=== PATIENT | female | born 2000 | race Caucasian/White ===

== ENCOUNTER 2023-07-08 21:47 | Outpatient (REF) | payer OTHER, BC, SELFPAY ==
[2023-07-13 12:13] LABS: Age Gdln ACOG Testing Note (.); IGP, rfx Aptima HPV ASCU Note (.)
== END 2023-07-08 21:48 | disposition home or self-care (01) ==
LOC: LAB 21:47
PROVIDERS: Visit Provider Physician Assistant
DX: Z01.419 Encounter for gynecological examination (general) (routine) without abnormal findings (principal)
CPT/HCPCS: G0145

== ENCOUNTER 2023-09-08 09:56 | Outpatient (OUT) | payer OTHER, BC, SELFPAY ==
--- NOTE | 2023-09-08 09:58 | US_ITS ---
The [address] [address] Patient Name: MIKAYLA MARKS MRN: [id number] date: 2000 Sex: F Assigned Patient Location: [facility] Current Patient Location: [facility] Accession/Order Number: [id number] Exam Date: 09/08/2023 09:59 Report Date: 09/08/2023 13:07 At the request of: IMELDA PÉREZ Procedure: US pelvis EXAMINATION: US pelvis HISTORY: BREAKTHROUGH BLEEDING COMPARISON: No relevant comparison available. FINDINGS: Transabdominal images The uterus is normal in size, contour and echotexture, anteverted, anteflexed. The uterus measures 7.0 x 2.8 x 4.9 cm. No focal myometrial mass The endometrium measures 3 mm, normal. The right ovary is normal measuring 2.5 x 1.4 x 2.5 cm. Normal color and Doppler flow. The left ovary is normal measuring 2.7 x 1.8 x 2.1 cm. Normal color and Doppler flow No free fluid US/US pelvis IMPRESSION: No abnormality observed Electronically authenticated by: ROGELIO DUMAS Date: 09/08/2023 13:07
--- OUTSIDE RECORDS SUMMARY | 2023-09-08 10:12 | XMS_ITS | CCD ---
Author Organization [facility] Care Team Providers Care Dredge Runner Name Role Phone LE SHARMA Admitting Unavailable LE SHARMA Attending Unavailable LE SHARMA Consulting Unavailable MISC, DOCTOR Admitting Unavailable MISC, DOCTOR Attending Unavailable REQUEST, NONE LISTED Primary Care Unavailable MISC, DOCTOR Consulting Unavailable FRANKO TRINIDAD Consulting Unavailable REQUEST, NONE LISTED Consulting Unavailable Problems Problem Classification Problem Date Documented Da te Episodic/Chronic Abdominal pain (4 sources) Unspecified abdominal pain; Translations: [UNSPECIFIED ABDOMINAL PAIN] Onset: 06-12-2019 Episodic Contraceptive and procreative management (4 sources) Encounter for surveillance of implantable subdermal contraceptive; Translations: [ENC SURV IMPLANT SUBDERMAL CNTRACPT] Onset: 05-26-2019 Results Test Name Value Interpretation Reference Range Facil ity US Nhan 06-12-2019 US ABD Patient: MIKAYLA MARKS. Exam Date: 06/12/2019 : 2000 Gender:F Ordering : DR. NEIDA RENTERIA Admission #: [id number] Family : Order #: [id number] CLICK HERE TO VIEW EXAM RADIOLOGY REPORT PROCEDURE: ULTRASOUND ABDOMEN COMPARISON: None. INDICATIONS: Chronic intermittent epigastric abdominal pain for 9 years TECHNIQUE: Complete ultrasound examination of the abdomen was performed. FINDINGS: LIVER: Normal size and echotexture. Color Doppler demonstrates patent hepatic veins. BILIARY: No abnormal dilation or visible calculus. Maximum common bile duct diameter: 3 mm. GALLBLADDER: No visible gallstones, wall thickening, or pericholecystic fluid. Negative sonographic Samuel's sign. PORTAL VEIN: Duplex Doppler demonstrates normal hepatopetal flow pattern averaging 35 cm/s. AORTA: Unremarkable. IVC: Unremarkable. PANCREAS: No visible mass, abnormal atrophy, or duct dilation. RIGHT KIDNEY: No visible mass, calculus or obstruction. Length: 10.4 cm. LEFT KIDNEY: No visible mass, calculus or obstruction. Length: 10.2 cm. SPLEEN: Normal size and echotexture. Maximum longitudinal diameter.10.4 cm. OTHER: Negative. CONCLUSION: 1. No acute or suspicious findings to account for the patient's symptoms. Dictated by: Franko Trinidad M.D. on 06/13/2019 at 08:26 Approved by: Franko Trinidad M.D. on 06/13/2019 at 08:31 Normal [facility] CHLAMYDIA/GONOCOCCUS CODY (SW AB/URINE/PAPon 05-29-2019 Chlamydia trachomatis, CODY Negative Normal Negative [facility] Comment on above: Performed By: #### C T/NGNA #### [facility] [address], [place] [address] Era Lei Neisseria gonorrhoeae, CODY Negative Normal Negative [facility] Comment on above: Performed By: #### C T/NGNA #### [facility] [address], [place] [address] Era Lei Encounters Encounter Date Encounter Type Care Provider Facility Start: 06-12-2019 End: 06-13-2019 Patient encounter procedure DOCTOR MIN Facility:[facility] Start: 05-26-2019 End: 05-26-2019 Patient encounter procedure LE SHARMA Facility:[facility] Payers Date Payer Category Payer Unknown [id number] 2000 Unknown [id number] 1957 Private Health Insurance [id number] 1957 Private Health Insurance [id number] Summary Purpose Family History No Family History Records Found Advance Directives No Advanced Directives Records Found Additional Source Comments INFORMATION SOURCE (unrecogn ized section and content) DATE CREATED AUTHOR 06/16/2019 [facility] FOR RECORDS PERTAINING TO PATIENTS WHO ARE OR HAVE BEEN ENROLLED IN A CHEMICAL DEPENDENCY/SUBSTANCEABUSE PROGRAM, SOME INFORMATION MAY BE OMITTED. This clinical summary was aggregated from multiple sources. Caution should be exercised in using it in the provision of clinical care. This summary normalizes information from multiple sources, and as a consequence, information in this document may materially change the coding, format and clinical context of patient data. In addition, data may be omitted in some cases. CLINICAL DECISIONS SHOULD BE BASED ON THE PRIMARY CLINICAL RECORDS. [facility] [employer] [facility]. provides no warranty or guarantee of the accuracy or completeness of information in this document.
== END 2023-09-08 09:57 | disposition home or self-care (01) ==
LOC: NOMS 09:57
PROVIDERS: Visit Provider Physician Assistant
DX: N92.1 Excessive and frequent menstruation with irregular cycle (principal); Z97.5 Presence of (intrauterine) contraceptive device
CPT/HCPCS: 76856

== ENCOUNTER 2024-06-16 07:31 | Outpatient (OUT) | payer OTHER, BC, SELFPAY ==
--- OUTSIDE RECORDS SUMMARY | 2024-06-16 07:33 | XMS_ITS | CCD ---
Author Organization [facility] Care Team Providers Care Mold Maker Plaster Name Role Phone LE SHARMA Admitting Unavailable LE SHARMA Attending Unavailable LE SHARMA Consulting Unavailable MISC, DOCTOR Admitting Unavailable MISC, DOCTOR Attending Unavailable REQUEST, NONE LISTED Primary Care Unavailable MECHELLE, DOCTOR Consulting Unavailable FRANKO TRINIDAD Consulting Unavailable REQUEST, NONE LISTED Consulting Unavailable MARYSE NINA Attending Unavailable Unavailable Primary Care Provider UnavailSophy Hendricks Attending Unavailable Sophy Fall Admitting Unavailable SHANA PÉREZ Attending Unavailable LEANDRA LAMAR Attending Unavailable LEANDRA LAMAR Attending Unavailable SHANA PÉREZ Attending Unavailable Allergies Allergy Classification Reported Allergen(s) Allergy Type Date of Onset Reaction(s) Facility (1 source) ALLERGIES NOT ON FILE; Translations: [ALLERGIES NOT ON FILE] Propensity to adverse reactions (disorder) [facility] Repository Medications Current Medications Medication Drug Class(es) Dates Sig (Normalized) Sig (Original) 8 hr acetaminophen 650 mg extended release oral tablet (5 sources) acetaminophen (Tylenol 8 Hour) 650 MG ER tablet Tylenol Active aluminum chloride 200 mg/ml topical solution (2 sources) Start: 05-10-2023 End: 05-09-2024 aluminum chloride (Drysol) 20 % external solution Apply topically at bedtime 0 05/10/2023 05/09/2024 Active desogestrel 0.15 mg / ethinyl estradiol 0.03 mg oral tablet (3 sources) Progestin, Estrogen Start: 08-25-2023 End: 08-24-2024 desogestrel-ethinyl estradiol (Apri) 0.15-30 MG-MCG tablet Indications: Breakthrough bleeding on Nexplanon Take 1 tablet by mouth Daily 28 tablet 12 08/25/2023 08/24/2024 Active Completed/Discontinued Medications Medication Drug Class(es) Dates Sig (Normalized) Sig (Original) adapalene 0.001 mg/mg / benzoyl peroxide 0.025 mg/mg topical gel (5 sources) Retinoid End: 06-07-2024 Adapalene-Benzoyl Peroxide 0.1-2.5 % gel Epiduo 0.1 %-2.5 % topical gel with pump APPLY A THIN LAYER TO THE AFFECTED ACNE AREA(S) OF THE FACE AND/OR UPPER TRUNK AFTER WASHING BY TOPICAL ROUTE ONCE DAILY 06/07/2024 Discontinued citalopram 10 mg oral tablet (9 sources) Serotonin Reuptake Inhibitor Start: 05-15-2024 End: 06-07-2024 take 1 tablet by mouth in the morning citalopram (CeleXA) 10 MG tablet Indications: Anxiety, generalized (CMS/HCC) TAKE 1 TABLET BY MOUTH IN THE MORNING 30 tablet 2 05/15/2024 06/07/2024 Discontinued Start: 02-22-2024 End: 02-21-2025 take 1 tablet by mouth once daily citalopram (CeleXA) 20 MG tablet Indications: Anxiety, generalized (CMS/HCC) Take 1 tablet (20 mg) by mouth Daily 30 tablet 11 02/22/2024 02/21/2025 Active Start: 02-04-2023 take 1 tablet by janey th in the morning citalopram (CeleXA) 10 MG tablet Indications: Anxiety, generalized (CMS/HCC) Take 1 tablet (10 mg) by mouth in the morning. 30 tablet 11 02/04/2023 Active desoximetasone 2.5 mg/ml topical cream (5 sources) Corticosteroid End: 06-07-2024 desoximetasone (Topicort) 0.25 % cream APPLY A THIN LAYER TO THE ITCHY ECZEMA RASH ON ARMS AND LEGS TWICE DAILY UNTIL IMPROVED 06/07/2024 Discontinued etonogestrel 68 mg drug implant (5 sources) Progestin Start: 12-22-2021 End: 06-07-2024 etonogestrel-eluting (Nexplanon) 68 mg contraceptive implant 1 each by Implant route 1 (one) time 12/22/2021 06/07/2024 Discontinued ondansetron 4 mg disintegrating oral tablet (3 sources) Serotonin-3 Receptor Antagonist Start: 08-05-2023 End: 06-07-2024 ondansetron ODT (Zofran-ODT) 4 MG disintegrating tablet DISSOLVE 1 TO 2 TABLETS UNDER THE TONGUE EVERY 4 TO 6 HOURS NEEDED FOR NAUSEA/VOMITING 08/05/2023 06/07/2024 Discontinued Problems Problem Classification Problem Date Documented Da te Episodic/Chronic Abdominal pain (4 sources) Unspecified abdominal pain; Translations: [UNSPECIFIED ABDOMINAL PAIN] Onset: 06-12-2019 Episodic Allergic reactions (2 sources) Intrinsic (allergic) eczema; Translations: [Intrinsic (allergic) eczema] Onset: 02-08-2023 Chronic Contraceptive and procreative management (4 sources) Encounter for surveillance of implantable subdermal contraceptive; Translations: [ENC SURV IMPLANT SUBDERMAL CNTRACPT] Onset: 05-26-2019 Nonmalignant breast conditions (4 sources) Lump in left breast; Translations: [Unspecified lump in the left breast, unspecified quadrant] 06-07-2024 Episodic Other injuries and conditions due to external causes (1 source) Other injury of unspecified body region, initial encounter; Translations: [Other injury of unspecified body region, initial encounter] Onset: 04-14-2024 Episodic Results Test Name Value Interpretation Reference Range [facility] ity Aerobic Cultureon 04-14-2024 Aerobic Culture DISCHARGE FROM WOUND ORGANISM: Streptococcus pyogenes grp A (O:STRPYO) Quantity of Growth Heavy Growth DISCHARGE FROM WOUND No Anaerobes Isolated 3 Days DISCHARGE FROM WOUND Gram Stain Result 3+ White Blood Cells 2+ Gram Positive Cocci in Chains PERFORMED BY: [place] [address] PATHOLOGIST NATUROPATHIC PHYSICIAN MEGGAN ALEMAN M.D. Normal [facility] Comment on above: Performed By: #### AERC #### [address] 36on 05-10-2023 36 We can try drysol Normal [facility] 36 Qbrexza was denied b y insurance and patient was wondering about trying Drysol, sweating has been increasing. Normal [facility] Orders Onlyon 05-10-2023 Orders Only [id number] Marilu Corrigan 2000 F Date Provider Department Center 05/10/2023 MARYSE [facility] DERM Yuliana Heal No family history on file [facility] 36on 02-10-2023 36 . Normal [facility] 37on 02-08-2023 37 Resume lidex cream twice daily to the eczema until improved then stop, use as needed. For hyperhidrosis- start Qbrexza wipes once daily. Wash hands thoroughly after use. Consider Botox, or compounded glycopyrrolate if insurance will not approve Qbrexza. For her acne, start samples of Altreno lotion once daily at night [facility] Follow-Upon 02-08-2023 Follow-Up [id number] Marilu Corrigan 2000 F Date Provider Department Center 02/08/2023 MARYSE [facility] Yuliana Heal No family history on file Level of Service:54014 MA OFFICE/OUTPATIENT ESTABLISHED MOD MDM 30-39 MIN Reason for Visit and Comments: Rash [511666] - Patient found her triamcinolone last week and used on neck eruption, is doing better. Acne [[id number]] - Frequent break outs and white heads on face. Excessive Sweating [[id number]] - Patient c/o increased sweating under arms, can be doing nothing and they will just drip. [facility] 36on 06-25-2022 36 Okay to refill [facility] US Nhan 06-12-2019 US ABD Patient: GATITOARTIRACHELNN Francisca Exam Date: 06/12/2019 : 2000 Gender:F Ordering : DR. NEIDA RENTERIA Admission #: [id number] Family : Order #: [id number] CLICK HERE TO VIEW EXAM RADIOLOGY REPORT [...] M.D. on 06/13/2019 at 08:31 Normal [facility] CHLAMYDIA/GONOCOCCUS OCDY ( AB/URINE/PAPon 05-29-2019 Chlamydia trachomatis, CODY Negative Normal Negative [facility] Comment on above: Performed By: #### CT/NGNA #### [facility] [address] [place], [place] [address] Era Lei Neisseria gonorrhoeae, CODY Negative Normal Negative [facility] Comment on above: Performed By: #### CT/NGNA #### [facility] [address] [place], [place] [address] Era Lei Vital Signs Date Time Vital Sign Value Performing Clinician Christine salazar 06-07-2024 15:25-0500 Body mass index (BMI) [Ratio] 24.98 kg/m2 Shana ARTHUR Work Phone: [facility] 06-07-2024 15:25-0500 Body weight 78.98 kg hSana ARTHUR Work Phone: [facility] 06-07-2024 15:25-0500 Diastolic blood pressure 70 mm[Hg] Shana ARTHUR Work Phone: [facility] 06-07-2024 15:25-0500 Systolic blood pressure 110 mm[Hg] Shana ARTHUR Work Phone: [facility] 07-08-2023 09:11-0500 Body mass index (BMI) [Ratio] 23.96 kg/m2 Shana ARTHUR Work Phone: [facility] 07-08-2023 09:11-0500 Body weight 75.75 kg Shana ARTHUR Work Phone: [facility] 07-08-2023 09:11-0500 Diastolic blood pressure 78 mm[Hg] Shana ARTHUR Work Phone: [facility] 07-08-2023 09:11-0500 Systolic blood pressure 126 mm[Hg] Shana ARTHUR Work Phone: [facility] Encounters Encounter Date Encounter Type Care Provider Facility Start: 06-07-2024 End: 06-07-2024 Office outpatient visit 15 minutes Shana ARTHUR Work Phone: [facility] Comment on above: Mass of left breast, unspecified quadrant; Breast lump on left side at 4 o'clock position Start: 06-07-2024 End: 06-07-2024 ambulatory SHANA PÉREZ Not Available Start: 06-07-2024 End: 06-07-2024 Bamboo flowsheet Shana ARTHUR Work Phone: [facility] Start: 06-07-2024 End: 06-07-2024 Bamboo flowsheet Shana ARTHUR Work Phone: [facility] Start: 04-14-2024 End: 04-14-2024 ambulatory Sophy Fall Facility:[facility] Start: 12-07-2023 End: 12-07-2023 ambulatory LEANDRA WILLARD Not Available Start: 08-25-2023 End: 08-25-2023 ambulatory LEANDRA WILLARD Not Available Start: 07-08-2023 End: 07-08-2023 Patient encounter procedure Shana ARTHUR Work Phone: [facility] Start: 07-08-2023 End: 07-08-2023 Periodic preventive med est patient 18-39 yrs Shana ARTHUR Work Phone: [facility] Comment on above: Well woman exam with routine gynecological exam Start: 07-08-2023 End: 07-08-2023 ambulatory SHANA PÉREZ Not Available Start: 07-07-2023 Chart abstracting Shana ARTHUR Work Phone: [facility] Start: 02-08-2023 End: 02-08-2023 [facility] Start: 06-12-2019 End: 06-13-2019 Patient encounter procedure DOCTOR MECHELLE Facility:[facility] Start: 05-26-2019 End: 05-26-2019 Patient encounter procedure LE SHARMA Facility:[facility] Plan of Treatment Date Care Activity Detail Author Start: 06-07-2024 End: 06-07-2024 Patient encounter procedure 06/07/2024 3:10 PM EST Office Visit [facility] [address] [place] [address] Shana Pérez PA [address] [place], [place] [id number] Arrived [facility] Comment on above: Arrived Start: 06-07-2024 End: 08-05-2025 MG Breast - left Diagnostic Left diagnostic mammogram Imaging Routine Breast lump on left side at 4 o'clock position Expected: 06/07/2024 (Approximate), Expires: 08/05/2025 [facility] Work Phone: Comment on above: Expected: 06/07/2024 (Approximate), Expires: 08/05/2025 Start: 07-08-2023 End: 07-08-2023 Patient encounter procedure 07/08/2023 9:00 AM EST Office Visit [facility] [address] [facility] [place] [address] Shana Pérez PA [address] [place] [address] Well woman exam with routine gynecological exam [facility] Comment on above: Well woman exam with routine gynecological exam Cytology Cervical or vaginal smear or scraping study Pap Smear Pathology and Cytology Routine Well woman exam with routine gynecological exam Ordered: 07/08/2023 [facility] Work Phone: Comment on above: Ordered: 07/08/2023 Payers Date Payer Category Payer Self-pay 2022 Private Health Insurance [id number] 2021 [facility] BCBS [id number] 2021 Unknown BCBS BCBS [id number] 2021-Present [phone] [id number] [place], [place] [address] [id number] 2021 Unknown [id number] 2002 Unknown [id number] 2002 Unknown [id number] 2002 Unknown [id number] 2002 Unknown [id number] 2002 Unknown [id number] 2002 Unknown [id number] 1959 Private Health Insurance [id number] 1959 Private Health Insurance [id number] Unknown [id number] Social History Date Type Detail Facility Start: [facility] Start: 07-05-2023 End: 06-07-2024 Alcohol intake Lifetime non-drinker (finding) [facility] Start: 02-04-2023 End: 12-07-2023 History of Social function [facility] Start: 02-04-2023 End: 12-07-2023 Tobacco use panel [facility] Start: 01-26-2023 Alcohol Comment Caffeine: pop once per week [facility] Start: 2000 Sex Assigned At Not on file [facility] Evaluation note 06-08-2024 Note Date & Type Note Facility 06-08-2024 Evaluation note Diagnosis Mass of left breast, unspecified quadrant Breast lump on left side at 4 o'clock position Lump or mass in breast documented in this encounter [facility] History of Present illness Narrative 06-07-2024 SANDHYA Loza - 06/07/2024 3:10 PM EST Note Date & Type Note Facility 06-07-2024 History of Presen t illness Narrative Images from the original note were not included. Reason for Appointment: Patient ID: Marilu Corrigan is a 24 y.o. female who presents for Breast Problem Patient presents today for Acute Visit. MEDICATIONS Current Outpatient Medications Medication Instructions acetaminophen (Tylenol 8 Hour) 650 MG ER tablet Tylenol citalopram (CELEXA) 20 mg, Oral, Daily desogestrel-ethinyl estradiol (Apri) 0.15-30 MG-MCG tablet 1 tablet, Oral, Daily ALLERGIES No Known Allergies PROBLEMS Active Ambulatory Problems Diagnosis Date Noted No Active Ambulatory Problems Resolved Ambulatory Problems Diagnosis Date Noted No Resolved Ambulatory Problems Past Medical History: Diagnosis Date Dehydration Pharyngitis HISTORY PAST MEDICAL HISTORY SOCIAL HISTORY Past Medical History: Diagnosis Date Dehydration age 7 Pharyngitis Social History Tobacco Use Smoking status: Never Smokeless tobacco: Not on file Substance Use Topics Alcohol use: Never Comment: Caffeine: pop once per week Drug use: Never FAMILY HISTORY Family History Problem Relation Name Age of Onset Hypertension Father Other (Tongue) Maternal Grandmother Cancer Maternal Grandmother Diabetes Maternal Grandmother Cancer Maternal Grandfather Heart disease Maternal Grandfather Cancer Paternal Grandmother Heart disease Paternal Grandmother Diabetes Paternal Grandmother Hypertension Paternal Grandfather Other (Adrenal) Paternal Grandfather Diabetes Paternal Grandfather Heart disease Paternal Grandfather Cancer Paternal Grandfather SURGICAL HISTORY Past Surgical History: Procedure Laterality Date MA TONSILLECTOMY & ADENOIDECTOMY AGE 14/> 03/2019 REVIEW OF SYSTEMS Review of Systems: Review of Systems Constitutional: Negative. HENT: Negative. Eyes: Negative. Respiratory: Negative. Cardiovascular: Negative. Gastrointestinal: Negative. Genitourinary: Negative. Musculoskeletal: Negative. Skin: Negative. Neurological: Negative. All other systems reviewed and are negative. Hematological: Negative. Endocrine: Negative. Allergic/Immunologic: Negative. OBJECTIVE Objective: Physical Exam Constitutional: Appearance: Normal appearance. She is normal weight. Genitourinary: Genitourinary Comments: Small 2cm freely mobile left breast cyst Breasts: Right: Normal. Left: Normal. HENT: Head: Normocephalic. Cardiovascular: Rate and Rhythm: Normal rate. Pulses: Normal pulses. Pulmonary: Effort: Pulmonary effort is normal. Breath sounds: Normal breath sounds. Chest: Abdominal: Palpations: Abdomen is soft. Musculoskeletal: General: Normal range of motion. Neurological: General: No focal deficit present. Mental Status: She is alert and oriented to person, place, and time. Psychiatric: Mood and Affect: Mood normal. Behavior: Behavior normal. Thought Content: Thought content normal. Judgment: Judgment normal. Vitals and nursing note reviewed. Vitals: Estimated body mass index is 24.98 kg/m as calculated from the following: Height as of 02/04/23: 5' 10 . Weight as of this encounter: 174 lb 1.9 oz. BP: 110/70 Patient's last menstrual period was 05/20/2024. ASSESSMENT & PLAN ICD-10-CM 1. Mass of left breast, unspecified quadrant N63.20 2. Breast lump on left side at 4 o'clock position N63.23 Left diagnostic mammogram Pt presents for a breast lump she felt 3 weeks previously.freely mobile cyst vs lymph node. Pateitn has not pain today. We will order diagnostic mammogram and follow up a needed Documented by SANDHYA Loza on behalf of: SANDHYA Loza documented in this encounter [facility] History of Present illness Narrative 07-08-2023 SANDHYA Loza - 07/08/2023 9:00 AM EST Note Date & Type Note Facility 07-08-2023 History of Presen t illness Narrative Reason for Appointment: Patient ID: Marilu Corrigan is a 23 y.o. female who presents for Gynecologic Exam Patient presents today for Annual Exam appointment. Current Medications: has a current medication list which includes the following prescription(s): aluminum chloride, acetaminophen, adapalene-benzoyl peroxide, citalopram, and desoximetasone. Medical History: Active Ambulatory Problems Diagnosis Date Noted No Active Ambulatory Problems Resolved Ambulatory Problems Diagnosis Date Noted No Resolved Ambulatory Problems Past Medical History: Diagnosis Date Dehydration Pharyngitis Family History Problem Relation Name Age of Onset Hypertension Father Other (Tongue) Maternal Grandmother Cancer Maternal Grandmother Diabetes Maternal Grandmother Cancer Maternal Grandfather Heart disease Maternal Grandfather Cancer Paternal Grandmother Heart disease Paternal Grandmother Diabetes Paternal Grandmother Hypertension Paternal Grandfather Other (Adrenal) Paternal Grandfather Diabetes Paternal Grandfather Heart disease Paternal Grandfather Cancer Paternal Grandfather Social History Tobacco Use Smoking status: Never Smokeless tobacco: Not on file Substance Use Topics Alcohol use: Never Comment: Caffeine: pop once per week Drug use: Never Past Surgical History: Procedure Laterality Date MA TONSILLECTOMY & ADENOIDECTOMY AGE 14/> 03/2019 No Known Allergies Review of Systems: Review of Systems Constitutional: Negative. HENT: Negative. Eyes: Negative. Respiratory: Negative. Cardiovascular: Negative. Gastrointestinal: Negative. Musculoskeletal: Negative. Skin: Negative. Neurological: Negative. Psychiatric/Behavioral: Negative. All other systems reviewed and are negative. Hematological: Negative. Endocrine: Negative. Objective Physical Exam Constitutional: Appearance: Normal appearance. She is well-developed. Genitourinary: Vulva normal. Right Adnexa: not tender and no mass present. Left Adnexa: not tender and no mass present. No cervical discharge. Breasts: Breasts are soft. Right: Normal. Left: Normal. HENT: Head: Normocephalic. Nose: Nose normal. Mouth/Throat: Mouth: Mucous membranes are moist. Cardiovascular: Rate and Rhythm: Normal rate and regular rhythm. Pulmonary: Effort: Pulmonary effort is normal. Breath sounds: Normal breath sounds. Abdominal: General: Bowel sounds are normal. There is no distension. Palpations: Abdomen is soft. Tenderness: There is no abdominal tenderness. There is no guarding or rebound. Musculoskeletal: General: No swelling. Normal range of motion. Cervical back: Normal range of motion. Right lower leg: No edema. Left lower leg: No edema. Comments: Nexplanon in place left upper extremity Neurological: General: No focal deficit present. Mental Status: She is alert and oriented to person, place, and time. Skin: General: Skin is warm and dry. Psychiatric: Mood and Affect: Mood normal. Behavior: Behavior normal. Vitals and nursing note reviewed. Exam conducted with a saturator tender present. Vitals: Estimated body mass index is 23.96 kg/m as calculated from the following: Height as of 02/04/23: 5' 10 . Weight as of this encounter: 167 lb. BP: 126/78 No LMP recorded. Assessment/Plan Encounter Diagnosis Name Primary? Well woman exam with routine gynecological exam Patient presents today for an annual exam. Patient states she is doing well and has no complaints. Requested cultures due to being sexually active. Currently has Nexplanon that was placed in December of 2021. Pap was obtained without difficulty. Follow Up: Patient is to return in one year for annual unless needed otherwise. Documented by Desiree Zhang MA on behalf of: SANDHYA Loza documented in this encounter [facility] Progress note 02-08-2023 Note Date & Type Note Facility 02-08-2023 Note Subjective Marilu Corrigan is a 22 y.o. female with a history of facial acne, atopic dermatitis, and axillary hyperhidrosis who presents for the following: Rash (Patient found her triamcinolone last week and used on neck eruption, is doing better.), Acne (Frequent break outs and white heads on face.), and Excessive Sweating (Patient c/o increased sweating under arms, can be doing nothing and they will just drip.). She notes a flare of her eczema, onset last week on the neck. She also has it on the abdomen. It is itchy. She cannot find her lidex cream as she divides her time between her parent's houses, but she found an old tube of kenalog cream and that has started to give some relief. She notes this flare is not as bad as she normally gets and she can manage with topicals. Regarding acne, she has not been using any topicals (differin or tretinoin). She also notes some bumps behind the right ear that will not go away. Lastly, she has a history axillary hyperhidrosis. Qbrexza wipes worked well when she sampled them, but she ran out of samples and has not followed up regarding it due to school schedule. However, she is interested in a prescription as her sweating prevents wearing certain clothing (must wear black shirts) and the amount of sweating has caused significant mental distress, depression. Review of Systems Constitutional: Negative for chills, fatigue, fever and unexpected weight change. Skin: Positive for rash (itching). Sweating, acne, rash Objective Well appearing patient in no apparent distress; mood and affect are within normal limits. Physical Exam Constitutional: General: She is not in acute distress. Appearance: Normal appearance. HENT: Head: Normocephalic and atraumatic. Mouth/Throat: Mouth: Mucous membranes are moist. Eyes: Extraocular Movements: Extraocular movements intact. Conjunctiva/sclera: Conjunctivae normal. Musculoskeletal: Cervical back: Neck supple. Neurological: Mental Status: She is alert and oriented to person, place, and time. Mental status is at baseline. Psychiatric: Mood and Affect: Mood normal. Behavior: Behavior normal. Thought Content: Thought content normal. Judgment: Judgment normal. Face/Head/Ears: elastosis, b/l infraorbital cheeks with clustered cystic minute papules, few erythematous acneiform papules on the cheeks; right inferior post-auricular with cluster of white cystic minute papules Neck: photo shows erythematous eczematous slightly plaques, but clear today Abdomen: lower abdomen with scattered faint erythematous eczematous patches Upper extremities: hands wnl Hair, nails: wnl Sweat glands: axillae with excessive perspiration collecting on the shirt b/l Assessment/Plan Intrinsic atopic dermatitis Related Medications fluocinonide (Lidex) 0.05 % cream Apply to affected areas twice daily until rash improved Primary focal hyperhidrosis of axilla Related Medications Qbrexza 2.4 % towelette Apply 1 Application topically in the morning. Wash hands thoroughly after use Acne vulgaris Atopic dermatitis has started to show signs of improvement with kenalog cream that is -and discussed kenalog injection versus managing with topicals. She is has localized areas and recommend topical therapy to control eczema. If it does not control or worsens, then can consider kenalog injection (40mg)- it has been >1 year since her last injection Altreno lotion and Retin A micro samples given. Start with altreno lotion first [facility] Evaluation note Note Date & Type Note Facility Evaluation note Diagnosis Well woman exam with routine gynecological exam Routine gynecological examination documented in this encounter [facility] Summary Purpose Family History No Family History Records FoundNo Family History Records FoundNo Family History Records FoundNo Family History Records Found Advance Directives No Advanced Directives Records FoundNo Advanced Directives Records FoundNo Advanced Directives Records FoundNo Advanced Directives Records Found Additional Source Comments INFORMATION SOURCE (unrecogn ized section and content) DATE CREATED AUTHOR 06/16/2019 [facility] pital DATE CREATED AUTHOR AUTHOR'S ORGANIZ ATION 05/10/2023 [facility] DATE CREATED AUTHOR AUTHOR'S ORGANIZ ATION 04/21/2024 [facility] DATE CREATED AUTHOR AUTHOR'S ORGANIZ ATION 06/10/2024 [facility] EPIC Reason for Visit (unrecogniz ed section and content) Reason Comments Gynecologic Exam Reason Comments Breast Problem FOR RECORDS PERTAINING TO PATIENTS WHO ARE [...] BE BASED ON THE PRIMARY CLINICAL RECORDS. [facility]. provides no warranty or guarantee of the accuracy or completeness of information in this document.
--- NOTE | 2024-06-16 07:34 | US_ITS ---
Patient Name: MIKAYLA MARKS MR#: [id number] : 2000 Exam Date: 06/16/2024 Ordering Doctor: SANDHYA Moon . RADIOLOGY REPORT PROCEDURE: MM TOMOSYNTHESIS DIAGNOSTIC BI, 06/16/2024, 07:57 US BREAST LT LIMITED, 06/16/2024, 07:47 COMPARISON: None. INDICATIONS: Left Breast Mass Calculator Name NCI Breast Cancer Risk Assessment Tool 5 Year Breast Cancer Risk Not Applicable. Lifetime Breast Cancer Risk Not Applicable. Personal Breast Cancer No Personal Ovarian Cancer No Treatments None Family Cancers Aunt-maternal with breast cancer at age ~45. LOCATION: [facility] BREAST COMPOSITION: The breasts are extremely dense, which lowers the sensitivity of mammography. FINDINGS: DIAGNOSTIC CATEGORY 4--SUSPICIOUS FOR MALIGNANCY. FINDING DOES NOT EXHIBIT CLASSIC FINDINGS OF BREAST CANCER: Scattered benign-appearing lymph nodes are present. RIGHT BREAST: No significant suspicious finding. LEFT BREAST: Subjacent to a triangle marker which indicates a palpable mass is a 2.5 x 1.9 cm oval circumscribed mass lower outer quadrant, anterior breast. Ultrasound demonstrates at the 4 o'clock position a hypervascular 2.2 x 1.7 x 2.1 cm oval mass just below the dermis. Ultrasound-guided core biopsy is recommended for histopathologic diagnosis RECOMMENDATIONS: ULTRASOUND-GUIDED CORE BIOPSY: LEFT BREAST PLEASE NOTE: A NORMAL MAMMOGRAM DOES NOT EXCLUDE THE POSSIBILITY OF BREAST CANCER. A CLINICALLY SUSPICIOUS PALPABLE LUMP SHOULD BE BIOPSIED. Dictated by: Salinas Pinedo MD on 06/16/2024 at 08:26 Approved by: Salinas Pinedo MD on 06/16/2024 at 08:30
== END 2024-06-16 07:32 | disposition home or self-care (01) ==
LOC: US 07:31
PROVIDERS: Visit Provider Physician Assistant
DX: N63.20 Unspecified lump in the left breast, unspecified quadrant (principal); N63.23 Unspecified lump in the left breast, lower outer quadrant; Z80.3 Family history of malignant neoplasm of breast
CPT/HCPCS: 76642; 77066; G0279

== ENCOUNTER 2024-06-19 09:33 | Day surgery (SDC) | payer OTHER, BC, SELFPAY ==
--- NOTE | 2024-06-19 09:45 | US_ITS ---
[address] [address] Patient Name: MIKAYLA MARKS MRN: [id number] date: 2000 Sex: F Assigned Patient Location: US Current Patient Location: Accession/Order Number: [id number] Exam Date: 06/19/2024 09:50 Report Date: 06/19/2024 11:39 At the request of: IMELDA PÉREZ Procedure: US breast vac bx w/ clip LT EXAM: US breast vac bx w/ clip LT HISTORY: Breast Mass COMPARISON: Ultrasound breast left 06/16/2024 TECHNIQUE: After obtaining informed consent, ultrasound-guided biopsy was performed in the usual sterile manner. The location of the biopsy was then marked as indicated below. FINDINGS: Specimen #, Location: 3 core samples; Left breast 3:00, 2.2 cm heterogeneous hypoechoic vascular mass. Biopsy Needle: 13 gauge vacuum core biopsy needle. Marker(s): A single metallic marker was placed in the appropriate targeted location. Medication: Buffered 1% Lidocaine with epinephrine administered locally. Complications: None. Pathology: Pending. US/US breast vac bx w/ clip LT IMPRESSION: 1. Uneventful ultrasound-guided breast biopsy. 2. Pathology results are pending. An addendum to this report will be provided after pathology results are available. Electronically authenticated by: NORBERT CHINO Date: 06/19/2024 11:39
--- NOTE | 2024-06-19 09:45 | MM_ITS ---
Patient Name: MIKAYLA MARKS MR#: [id number] : 2000 Exam Date: 06/19/2024 Ordering Doctor: SANDHYA Moon . RADIOLOGY REPORT PROCEDURE: MM POST BIOPSY LT COMPARISON: MM TOMOSYNTHESIS DIAGNOSTIC BI, 06/16/2024. INDICATIONS: Breast Mass BREAST COMPOSITION: FINDINGS: Post-Procedure Mammogram for Marker Placement BIOPSY MARKER: A metallic marker has been placed in the targeted location within the lower-outer quadrant of the left breast. BREAST FINDINGS: Expected post biopsy findings. RECOMMENDATIONS: Dictated by: Franko Trinidad M.D. on 06/19/2024 at 13:20 Approved by: Franko Trinidad M.D. on 06/19/2024 at 13:21
--- OUTSIDE RECORDS SUMMARY | 2024-06-19 09:50 | XMS_ITS | CCD ---
Author Organization [facility] Care Team Providers Care Receiving Specialist Name Role Phone LE SHARMA Admitting Unavailable [...] Attending Unavailable LEANDRA LAMAR Attending Unavailable SHANA ÉPREZ Attending Unavailable Allergies Allergy Classification Reported Allergen(s) Allergy Type Date of Onset Reaction(s) Facility (1 source) ALLERGIES NOT ON FILE; Translations: [ALLERGIES NOT ON FILE] Propensity to adverse reactions (disorder) [facility] Repository Medications Current Medications Medication Drug Class(es) [...] Results Test Name Value Interpretation Reference Range [facility] ity Aerobic Cultureon 04-14-2024 Aerobic Culture DISCHARGE FROM WOUND ORGANISM: Streptococcus pyogenes grp A (O:STRPYO) Quantity of Growth Heavy Growth DISCHARGE FROM WOUND No Anaerobes Isolated 3 Days DISCHARGE FROM WOUND Gram Stain Result 3+ White Blood Cells 2+ Gram Positive Cocci in Chains PERFORMED BY: [place] [address] PATHOLOGIST CONFERENCE MANAGER MEGGAN ALEMAN M.D. Normal [facility] Comment on above: Performed By: #### AERC #### [address] 36on 05-10-2023 36 We can try drysol Normal [facility] 36 Qbrexza was denied b y insurance and patient was wondering about trying Drysol, sweating has been increasing. Normal [facility] Orders Onlyon 05-10-2023 Orders Only [id number] Marilu Corrigan 2000 F Date Provider Department Center 05/10/2023 [facility] DERM Yuliana Heal No family history on file [facility] 36on 02-10-2023 36 . Normal [facility] 37on 02-08-2023 37 Resume lidex cream twice daily to the eczema until improved then stop, use as needed. For hyperhidrosis- start Qbrexza wipes once daily. Wash hands thoroughly after use. Consider Botox, or compounded glycopyrrolate if insurance will not approve Qbrexza. For her acne, start samples of Altreno lotion once daily at night [facility] Follow-Upon 02-08-2023 Follow-Up [id number] Marilu Corrigan 2000 F Date Provider Department Center 02/08/2023 [facility] DERM Yuliana Heal No family history on file Level of Service:97178 [place] OFFICE/OUTPATIENT ESTABLISHED MOD MDM 30-39 MIN Reason for Visit and Comments: Rash [137918] - Patient found her triamcinolone last week and used on neck eruption, is doing better. Acne [[id number]] - Frequent break outs and white heads on face. Excessive Sweating [[id number]] - Patient c/o increased sweating under arms, can be doing nothing and they will just drip. [facility] 36on 06-25-2022 36 Okay to refill [facility] US Nhan 06-12-2019 US ABD Patient: GATITOARTIRACHELNN Francisca Exam Date: 06/12/2019 : 2000 Gender:F Ordering : DR. NEIDA RENTERIA Admission #: [id number] Family : Order #: [id number] CLICK HERE TO VIEW EXAM RADIOLOGY REPORT [...] M.D. on 06/13/2019 at 08:31 Normal [facility] CHLAMYDIA/GONOCOCCUS CODY ( AB/URINE/PAPon 05-29-2019 Chlamydia trachomatis, CODY Negative Normal Negative [facility] Comment on above: Performed By: #### CT/NGNA #### [facility] [address] [place], [place] [address] Era Lei Neisseria gonorrhoeae, CODY Negative Normal Negative [facility] Comment on above: Performed By: #### CT/NGNA #### [facility] [address] [place], [place] [address] Era Lei Vital Signs Date Time Vital Sign Value Performing Clinician Christine salazar 06-07-2024 15:25-0500 Body mass index (BMI) [Ratio] 24.98 kg/m2 Shana ARTHUR Work Phone: [facility] 06-07-2024 15:25-0500 Body weight 78.98 kg Shana ARTHUR Work Phone: [facility] 06-07-2024 15:25-0500 Diastolic blood pressure 70 mm[Hg] Shana ARTHUR Work Phone: [facility] 06-07-2024 15:25-0500 Systolic blood pressure 110 mm[Hg] Shana ARTHUR Work Phone: [facility] 07-08-2023 09:11-0500 Body mass index (BMI) [Ratio] 23.96 kg/m2 Shana ARTHUR Work Phone: [facility] 07-08-2023 09:11-0500 Body weight 75.75 kg Shana ARTHUR Work Phone: [facility] 07-08-2023 09:11-0500 Diastolic blood pressure 78 mm[Hg] Shana ARTHUR Work Phone: [facility] 07-08-2023 09:11-0500 Systolic blood pressure 126 mm[Hg] Shana ARTHUR Work Phone: [facility] Healthcare Encounters Encounter Date Encounter Type Care Provider Facility Start: 06-07-2024 End: 06-07-2024 Office outpatient visit 15 minutes Shana ARTHUR Work Phone: [facility] Comment on above: Mass of left breast, unspecified quadrant; Breast lump on left side at 4 o'clock position Start: 06-07-2024 End: 06-07-2024 ambulatory SHANA PÉREZ Not Available Start: 06-07-2024 End: 06-07-2024 Bamboo flowsheet Shana ARTHUR Work Phone: [facility] Start: 06-07-2024 End: 06-07-2024 Bamboo flowsheet Shana ARTHUR Work Phone: [facility] Start: 04-14-2024 End: 04-14-2024 ambulatory Sophy Fall Facility:[facility] Start: 12-07-2023 End: 12-07-2023 ambulatory LEANDRA WILLARD Not Available Start: 08-25-2023 End: 08-25-2023 ambulatory LEANDRA WILLARD Not Available Start: 07-08-2023 End: 07-08-2023 Patient encounter procedure Shana ARTHUR Work Phone: [facility] Healthcare Start: 07-08-2023 End: 07-08-2023 Periodic preventive med est patient 18-39 yrs Shana ARTHUR Work Phone: [facility] Comment on above: Well woman exam with routine gynecological exam Start: 07-08-2023 End: 07-08-2023 ambulatory SHANA PÉREZ Not Available Start: 07-07-2023 Chart abstracting Shana ARTHUR Work Phone: [facility] Start: 02-08-2023 End: 02-08-2023 [facility] Start: 06-12-2019 End: 06-13-2019 Patient encounter procedure DOCTOR MECHELLE Facility:[facility] Start: 05-26-2019 End: 05-26-2019 Patient encounter procedure LE SHARMA Facility:[facility] Plan of Treatment Date Care Activity Detail Author Start: 06-07-2024 End: 06-07-2024 Patient encounter procedure 06/07/2024 3:10 PM EST Office Visit [facility] [address] [place] [address] Shana Pérez PA [address] [place], [place] [id number] Arrived [facility] Comment on above: [...] EST Office Visit [facility] [address] [facility] [facility] [place] [address] Shana Pérez PA [address] [place] [address] Well woman exam with routine gynecological exam [facility] Comment on above: Well woman exam with routine gynecological exam Cytology Cervical or vaginal smear or scraping study Pap Smear Pathology and Cytology Routine Well woman exam with routine gynecological exam Ordered: 07/08/2023 [facility] Work Phone: Comment on above: Ordered: 07/08/2023 Payers Date Payer Category Payer Self-pay 2022 Private Health Insurance [id number] 2021 [facility] BCBS [id number] 2021 Unknown BCBS BCBS xxxxxx [id number] 2021-Present [phone] [id number] [place], [place] [address] [id number] 2021 Unknown [id number] 2000 Unknown [id number] 2002 Unknown [id number] 2002 Unknown [id number] [id number] 2002 Unknown [id number] [id number] 2002 Unknown [id number] [id number] 2002 Unknown [id number] [id number] 1959 Private Health Insurance [id number] 1959 Private Health Insurance [id number] Unknown [id number] [id number] Social History Date Type Detail Facility Start: [facility] Start: 07-05-2023 End: 06-07-2024 Alcohol intake Lifetime non-drinker (finding) [facility] Start: 02-04-2023 End: 12-07-2023 History of Social function [facility] Start: 02-04-2023 End: 12-07-2023 Tobacco use panel [facility] Start: 01-26-2023 Alcohol Comment Caffeine: pop once per week [facility] Healthcare Start: 2000 Sex Assigned At Not on file [facility] Evaluation note 06-08-2024 Note Date & Type Note Facility 06-08-2024 Evaluation note Diagnosis Mass of left breast, unspecified quadrant Breast lump on left side at 4 o'clock position Lump or mass in breast documented in this encounter [facility] Healthcare History of Present illness Narrative 06-07-2024 [...] HISTORY Past Surgical History: Procedure Laterality Date [place] TONSILLECTOMY & ADENOIDECTOMY AGE 14/> 03/2019 REVIEW [...] Never Past Surgical History: Procedure Laterality Date [place] TONSILLECTOMY & ADENOIDECTOMY AGE 14/> 03/2019 No [...] nursing note reviewed. Exam conducted with a academic coach present. Vitals: Estimated body mass index is [...] Desiree Zhang MA on behalf of: SANDHYA oLza documented in this encounter [facility] Progress note 02-08-2023 Note Date & Type [...] samples given. Start with altreno lotion first [facility] Evaluation note Note Date & Type Note [...] content) DATE CREATED AUTHOR 06/16/2019 [facility] pital DATE CREATED AUTHOR AUTHOR'S ORGANIZ ATION 05/10/2023 [facility] DATE CREATED AUTHOR AUTHOR'S ORGANIZ ATION 04/21/2024 [facility] DATE CREATED AUTHOR AUTHOR'S ORGANIZ ATION 06/10/2024 [facility] dical Specialists EPIC Reason for Visit (unrecogniz [...] BE BASED ON THE PRIMARY CLINICAL RECORDS. [email or web address]. provides no warranty or guarantee of the accuracy or completeness of information in this document.
[2024-06-19 09:55] VITALS: BP 112/71; PULSE 93; O2SAT 98
[2024-06-19] MEDS: LIDOCAINE HCL 10 ML, SODIUM BICARBONATE 1 MEQ INJ (10:25)
[2024-06-19] MEDS: LIDOCAINE HCL/EPINEPHRINE 10 ML, SODIUM BICARBONATE 1 MEQ INJ (10:25)
--- NOTE | 2024-06-19 11:15 | SUR.PREOP ---
06/16/24 Pt instructed on procedure, date, time, and prep.
== END 2024-06-19 11:00 | disposition home or self-care (01) ==
LOC: US 09:34
PROVIDERS: Radiology Diagnostic Radiology; Visit Provider Physician Assistant
DX: D24.2 Benign neoplasm of left breast (principal)
CPT/HCPCS: 19083; 77065; 88305; 88341; 88342